=== PATIENT | female | born 1990 | race Caucasian/White ===

== ENCOUNTER 2016-09-09 17:26 | Observation (INO) | payer BC, MEDICAID, OTHER ==
[~2016-09-09] VITALS: Ht 154.9 cm; Wt 70.8 kg
[2016-09-09] MEDS ORDERED: D5LR 1,000 ML IV SCH (17:50)
[2016-09-09] MEDS ORDERED: NALBUPHINE HCL 10 MG/ML AMP IVP PRN (18:00)
[2016-09-09] MEDS ORDERED: cefTRIAXone 1 GM IVPB PREMIX 50 ML IV ONE (18:00)
[2016-09-09 18:36] LABS: BASOPHILS % (AUTO) 0.3 % (0.0-2.0); EOSINOPHILS % (AUTO) 0.1 % (0.0-4.0); HEMATOCRIT 33.1 % (36-48); HEMOGLOBIN 11.2 g/dL (12.0-16.0); LYMPHOCYTES # (AUTO) 0.8 K/uL (1.0-5.5); LYMPHOCYTES % (AUTO) 9.2 % (20.5-51.5); MEAN CORPUSCULAR HEMOGLOBIN 30 pg (27-31); MEAN CORPUSCULAR HGB CONC 34 % (32-36); MEAN CORPUSCULAR VOLUME 90 fL (79.0-98.0); MONOCYTES # (AUTO) 0.4 K/uL (0.0-1.0); MONOCYTES % (AUTO) 5.1 % (1.7-9.3); NEUTROPHILS # (AUTO) 7.4 K/uL (1.8-7.7); NEUTROPHILS % (AUTO) 85.3 % (40.0-70.0); PLATELET COUNT (AUTO) 122 K/uL (130-430); RED BLOOD CELL COUNT(AUTO) 3.69 MIL/uL (4.2-6.2); RED CELL DISTRIBUTION WIDTH 12.9 % (9.0-15.0); WHITE BLOOD COUNT (AUTO) 8.6 K/uL (4.8-10.8)
[2016-09-09 18:46] VITALS: BP_SYST 107
[2016-09-09 18:46] LABS: CALCIUM 8.3 mg/dL (8.4-11.0); CREATININE 0.58 mg/dL (0.55-1.30)
[2016-09-09 18:51] LABS: ALBUMIN 2.9 g/dL (3.4-4.8); TOTAL BILIRUBIN 0.4 mg/dL (0.0-1.0); TOTAL PROTEIN, SERUM 6.7 g/dL (6.4-8.3)
[2016-09-09] MEDS ORDERED: ACETAMINOPHEN 325 MG TABLET PO PRN (19:00)
[2016-09-09 19:39] LABS: BILIRUBIN,URINE NEGATIVE (NEGATIVE); CLARITY/URINE SL HAZY (CLEAR); COLOR,URINE YELLOW (YELLOW); GLUCOSE,URINE NEGATIVE (NEGATIVE); KETONES,URINE 2+ (NEGATIVE); LEUKOCYTE ESTERASE ,URINE 3+ (NEGATIVE); NITRITE, URINE NEGATIVE (NEGATIVE); PROTEIN URINE NEGATIVE (NEGATIVE); UROBILINOGEN,URINE 0.2 (0.2-1.0)
[2016-09-09 20:05] LABS: BARBITURATE, URINE NEGATIVE (NEG <=200); BENZODIAZEPINE, URINE NEGATIVE (NEG <=150); CANNABINOID, URINE NEGATIVE (NEG <=50); COCAINE, URINE NEGATIVE (NEG <=150); METHAMPHETAMINES SCREEN,URINE NEGATIVE (NEG <=500); OPIATE, URINE NEGATIVE (NEG <=100); PHENCYCLIDINE SCREEN,URINE NEGATIVE (NEG <=25); UR TRICYCLIC ANTIDEPRESSANTS NEGATIVE (NEG <=300); URINE AMPHETAMINE NEGATIVE (NEG <=500); URINE METHADONE NEGATIVE (NEG <=200); URINE OXYCODONE SCREEN NEGATIVE (NEG <=100); URINE PROPOXYPHENE SCREEN NEGATIVE (NEG <=300)
[2016-09-09 20:12] LABS: BLOOD, URINE TRACE (NEGATIVE)
[2016-09-09 20:51] LABS: BACTERIA,URINE FEW /HPF (None Seen); MUCUS,URINE None Seen /LPF (None Seen); RBC,URINE 0-3 /HPF (0-3)
[2016-09-10] MEDS ORDERED: LEVOTHYROXINE SODIUM 0.1 MG TABLET PO SCH (07:00)
== END 2016-09-10 09:46 | disposition home or self-care (01) ==
LOC: SPU 17:26
PROVIDERS: ADMIT Obstetrics & Gynecology; ATTEND Obstetrics & Gynecology
DX: O23.02 Infections of kidney in pregnancy, second trimester (principal); Z3A.22 22 weeks gestation of pregnancy
CPT/HCPCS: 36415; 80053; 80307; 81000; 85025; 87081; 87086; 96365; 96375; G0378 ×2; J0696; J2300; J7120 ×2

== ENCOUNTER 2016-11-11 19:39 | Observation (INO) | payer BC, MEDICAID, OTHER ==
[~2016-11-11] VITALS: Ht 154.9 cm; Wt 75.7 kg
== END 2016-11-11 21:03 | disposition home or self-care (01) ==
LOC: SPU 19:39
PROVIDERS: ADMIT Obstetrics & Gynecology; ATTEND Obstetrics & Gynecology
DX: O26.893 Other specified pregnancy related conditions, third trimester (principal); R10.9 Unspecified abdominal pain; M54.5 Low back pain; Z3A.32 32 weeks gestation of pregnancy
CPT/HCPCS: 81002; G0378

== ENCOUNTER 2019-01-25 11:54 | Inpatient (IN) | payer BC, MEDICAID, OTHER ==
[~2019-01-25] VITALS: Ht 154.9 cm; Wt 71.2 kg
[2019-01-25 12:00] VITALS: BP_SYST 121
--- NOTE | 2019-01-25 12:00 | NUR ---
Patient triaged and placed in waiting room. VSS and patient appears in no acute distress at this time. Accompanied by MOTHER, awaiting available bed, and MD notified of need for MSE.
--- NOTE | 2019-01-25 12:17 | NUR ---
BROUGHT BACK TO BED #8 VIA WHEELCHAIR, REPORT GIVEN TO ALFRED
--- NOTE | 2019-01-25 12:20 | NUR ---
Pt AAOx4 presents to ED via wheelchair c/o 8/10 L flank pain radiating to L lower abd since last night with diarrhea x 1 week. Pain exacerbated upon sitting in high fowlers position. No other injuries/complaints per pt/noted. Skin pink dry and warm, breathing even and unlabored. Will continue to monitor.
--- NOTE | 2019-01-25 12:30 | NUR ---
DANNY Starr at bedside examining patient.
[2019-01-25 12:56] LABS: BILIRUBIN,URINE NEGATIVE (NEGATIVE); BLOOD, URINE NEGATIVE (NEGATIVE); CLARITY/URINE CLEAR (CLEAR); COLOR,URINE YELLOW (YELLOW); GLUCOSE,URINE NEGATIVE (NEGATIVE); KETONES,URINE NEGATIVE (NEGATIVE); LEUKOCYTE ESTERASE ,URINE NEGATIVE (NEGATIVE); NITRITE, URINE NEGATIVE (NEGATIVE); PH,URINE 5.5 (5.0-8.0); PROTEIN URINE NEGATIVE (NEGATIVE); UROBILINOGEN,URINE 0.2 (0.2-1.0)
[2019-01-25] MEDS ORDERED: ONDANSETRON HCL 4 MG/2 ML VIAL IVP ONE (13:00)
[2019-01-25] MEDS ORDERED: MORPHINE 4 MG/ML INJ. SYRINGE IVP ONE ×2 (13:00→13:45)
[2019-01-25 13:07] LABS: BASOPHILS # (AUTO) 0.1 K/uL (0.0-0.2); BASOPHILS % (AUTO) 1.2 % (0.0-2.0); EOSINOPHILS # (AUTO) 0.1 K/uL (0.0-0.4); EOSINOPHILS % (AUTO) 1.3 % (0.0-4.0); HEMATOCRIT 40.6 % (36-48); HEMOGLOBIN 13.7 g/dL (12.0-16.0); LYMPHOCYTES # (AUTO) 2.9 K/uL (1.0-5.5); LYMPHOCYTES % (AUTO) 48.7 % (20.5-51.5); MEAN CORPUSCULAR HEMOGLOBIN 29 pg (27-31); MEAN CORPUSCULAR HGB CONC 34 % (32-36); MEAN CORPUSCULAR VOLUME 87 fL (79.0-98.0); MONOCYTES # (AUTO) 0.3 K/uL (0.0-1.0); MONOCYTES % (AUTO) 5.3 % (1.7-9.3); NEUTROPHILS # (AUTO) 2.5 K/uL (1.8-7.7); NEUTROPHILS % (AUTO) 43.5 % (40.0-70.0); PLATELET COUNT (AUTO) 170 K/uL (130-430); RED BLOOD CELL COUNT(AUTO) 4.68 MIL/uL (4.2-6.2); RED CELL DISTRIBUTION WIDTH 12.6 % (9.0-15.0); WHITE BLOOD COUNT (AUTO) 5.9 K/uL (4.8-10.8)
[2019-01-25 13:20] LABS: CALCIUM 9.2 mg/dL (8.4-11.0); CREATININE 0.58 mg/dL (0.55-1.30); POTASSIUM 4.2 mmol/L (3.5-5.1)
[2019-01-25 13:27] LABS: ALBUMIN 3.8 g/dL (3.4-4.8); TOTAL BILIRUBIN 0.5 mg/dL (0.0-1.0)
--- NOTE | 2019-01-25 13:36 | NUR ---
Medication administered. Pt tolerated well. No adverse reactions noted. Pt reports relief of pain and reports she is now able to sit up straight. Pt requests antacids. Dr. Starr notified.
[2019-01-25] MEDS ORDERED: PANTOPRAZOLE SODIUM 40 MG/VIAL (PROTONIX) IVP ONE (13:45)
--- NOTE | 2019-01-25 14:08 | NUR ---
Ultrasound at bedside
[2019-01-25] MEDS ORDERED: NACL 0.9% 1,000 ML IV ONE (14:30)
--- NOTE | 2019-01-25 14:30 | NUR ---
Pt ambulated to bathroom with steady gait. BP 99/67. Per Dr. Starr, 1 L IV NS bolus to be administered to increase BP before administering Morphine 4mg IVP.
[2019-01-25] MEDS ORDERED: D5NS 1,000 ML IV ONE (15:00)
[2019-01-25] MEDS ORDERED: LEVO125T PO (15:09)
--- NOTE | 2019-01-25 15:10 | NUR ---
Medication reconciliation completed with information provided by pt. Any prior medication reconciliation on file was reviewed and corrected.
--- NOTE | 2019-01-25 15:28 | NUR ---
Patient will be admitted to [facility]. Admitted to Med Surg unit. Will go to room 124 A. Summary report printed. Report will be given at bedside.
--- NOTE | 2019-01-25 15:52 | NUR ---
Admitting Note patient brought to room 109A via wheelchair, patient ambulated to bed, steady gait noted, respirations even and unlabored on room air, no acute distress noted, patient reports pain is controlled, patients mother at bedside, educated patient on use of call light and asked to call for assistance, patient verbalized understanding, call light in reach, educated patient on use of bed alarm for patient safety, patient refusing bed alarm, bed in low and locked position.
[2019-01-25 15:55] VITALS: BP_SYST 118
--- NOTE | 2019-01-25 17:45 | NUR ---
Spoke with Physician Spoke with Dr. Tan, informed him of patient complaint of pain to left abdomen, new medication orders received, verified with read back.
--- NOTE | 2019-01-25 17:50 | NUR ---
RN Rounds patient sitting up in bed eating dinner, tolerating well, patient reports nausea is controlled at this time, patients family at bedside.
[2019-01-25] MEDS: MORPHINE 2 MG/ML INJ. SYRINGE IVP PRN (18:20)
[2019-01-25 19:00] VITALS: BP_SYST 118
--- NOTE | 2019-01-25 19:15 | NUR ---
Closing Note bedside SBAR report given to receiving RN, patient resting in bed, no acute distress noted, patient reports pain is controlled at this time, respirations even and unlabored, patients family at bedside, paged Dr. David regarding patients home medication snythroid, per patient she did not take it today, awaiting call back, endorsed to retail shift leader RN regarding patients home medication, educated patient on use of call light and asked to call for assistance, patient verbalized understanding, call light in reach, educated patient on use of bed alarm for patient safety, patient refusing bed alarm, bed in low and locked position, care endorsed to retail shift leader RN.
[2019-01-25 20:00] VITALS: BP_SYST 118
[2019-01-25] MEDS: ACETAMINOPHEN 325 MG TABLET PO PRN (21:14)
--- NOTE | 2019-01-25 21:18 | NUR ---
DR ROMEO FREY THE PATIENT IS CONCERNED THAT SHE DID NOT TAKE HER LEVOTHYROXINE DOSE.
--- NOTE | 2019-01-25 21:24 | NUR ---
PAGED PAGED DOCTOR SHERRI WHO IS HOME ENERGY CONSULTANT
--- NOTE | 2019-01-25 21:29 | NUR ---
Dr Tan called back and informed that the patient is concerned that she has not taken her levothyroxine dose today. with orders and carried out
[2019-01-26 00:57] VITALS: BP_SYST 125
--- NOTE | 2019-01-26 04:39 | NUR ---
PAGED PAGED DOCTOR SHERRI WHO IS CONTROL CLERK AUDITING FOR ROMEO.
--- NOTE | 2019-01-26 04:39 | NUR ---
patient slept and wake up with with nausea sensation.mo meducation ordered, also has headache and claims that she has history of migrain and takes exedrine 2 tabs for it. ivf completed,Dr David paged for orders,
--- NOTE | 2019-01-26 05:00 | NUR ---
2PAGED PAGED DOCTOR SHERRI FOR 2ND TIME.
--- NOTE | 2019-01-26 05:35 | NUR ---
awaiting for Dr Tan to clall back. patient is currently asleep,ivf consumed and needs to clarify if it needs to be continued
--- NOTE | 2019-01-26 05:56 | NUR ---
Dr Tan called back and informed about the nausea and the headache, with orders and carried out, did not order exerine for migraine that the patient takke for migraine
[2019-01-26] MEDS ORDERED: ONDANSETRON HCL 4 MG/2 ML VIAL IVP PRN (06:00)
[2019-01-26] MEDS ORDERED: LEVOTHYROXINE SODIUM 0.125 MG TABLET PO SCH (07:00)
[2019-01-26] MEDS: ACETAMINOPHEN 325 MG TABLET PO PRN ×2 (07:48→11:56)
[2019-01-26 07:50] VITALS: BP_SYST 128
[2019-01-26] MEDS: MORPHINE 2 MG/ML INJ. SYRINGE IVP PRN ×2 (07:55→11:56)
--- NOTE | 2019-01-26 08:01 | NUR ---
am rounds: Oriented x4. Denies abdominal/flank pain but complaints of migraine headache with nausea, Medicated with morphine and zofran, Ice packs offered to the patient.
[2019-01-26 09:59] LABS: BASOPHILS # (AUTO) 0.1 K/uL (0.0-0.2); EOSINOPHILS # (AUTO) 0.1 K/uL (0.0-0.4); EOSINOPHILS % (AUTO) 2.1 % (0.0-4.0); HEMOGLOBIN 13.3 g/dL (12.0-16.0); LYMPHOCYTES # (AUTO) 2.4 K/uL (1.0-5.5); LYMPHOCYTES % (AUTO) 44.1 % (20.5-51.5); MEAN CORPUSCULAR HEMOGLOBIN 30 pg (27-31); MEAN CORPUSCULAR HGB CONC 34 % (32-36); MEAN CORPUSCULAR VOLUME 87 fL (79.0-98.0); MONOCYTES # (AUTO) 0.2 K/uL (0.0-1.0); MONOCYTES % (AUTO) 4.5 % (1.7-9.3); NEUTROPHILS # (AUTO) 2.6 K/uL (1.8-7.7); NEUTROPHILS % (AUTO) 48.3 % (40.0-70.0); PLATELET COUNT (AUTO) 160 K/uL (130-430); RED BLOOD CELL COUNT(AUTO) 4.47 MIL/uL (4.2-6.2); RED CELL DISTRIBUTION WIDTH 12.8 % (9.0-15.0); WHITE BLOOD COUNT (AUTO) 5.5 K/uL (4.8-10.8)
[2019-01-26 10:13] LABS: CALCIUM 8.6 mg/dL (8.4-11.0); CREATININE 0.81 mg/dL (0.55-1.30); POTASSIUM 3.5 mmol/L (3.5-5.1)
[2019-01-26 10:27] LABS: ALBUMIN 3.4 g/dL (3.4-4.8); THYROID STIMULATING HORMONE 0.26 uIu/mL (0.36-3.74); TOTAL BILIRUBIN 0.5 mg/dL (0.0-1.0)
[2019-01-26 11:05] VITALS: BP_SYST 95
[2019-01-26 12:00] VITALS: BP_SYST 102
--- NOTE | 2019-01-26 12:00 | NUR ---
Headache: Medicated for migraine headache, denies nausea.
--- NOTE | 2019-01-26 15:16 | NUR ---
D/C Patient Patient given medication reconciliation form and D/C instructions. Exit Care provided. Patient verbalized understanding. MD discussed with patient the results and treatment provided. Ambulatory with steady gait for discharge to home. Patient in stable condition, ID band removed. IV catheter removed, intact and dressing applied, no active bleeding. Patient educated on pain management and follow up with PCP. All belongings sent with patient.
== END 2019-01-26 14:58 | disposition home or self-care (01) | DRG 282 ==
LOC: SED 11:54 → SMU 14:56
PROVIDERS: ADMIT Internal Medicine Hospice and Palliative Medicine; ATTEND Internal Medicine Hospice and Palliative Medicine
DX: K85.90 Acute pancreatitis without necrosis or infection, unspecified (principal); E03.9 Hypothyroidism, unspecified; K59.00 Constipation, unspecified; F12.90 Cannabis use, unspecified, uncomplicated; Z79.899 Other long term (current) drug therapy; Z91.040 Latex allergy status
CPT/HCPCS: 36415; 76700-TC; 80053; 81003; 81025; 83690-TC; 84443-TC; 85025; 96361; 96374; 96375; 96376; 99285; C9113; J2270; J2405; J7030; J7042

== ENCOUNTER 2019-12-28 12:58 | Emergency (ER) | payer MEDICAID ==
[~2019-12-28] VITALS: Ht 160 cm; Wt 61.2 kg
[~2019-12-28 12:58] MED LIST: LEVO125T PO
[2019-12-28 13:19] VITALS: BP_SYST 120
[2019-12-28] MEDS ORDERED: ACETAMINOPHEN 500 MG TABLET PO ONE (13:45)
[2019-12-28 14:08] LABS: CALCIUM 9.1 mg/dL (8.4-11.0); CREATININE 0.6 mg/dL (0.55-1.30); POTASSIUM 3.7 mmol/L (3.5-5.1)
[2019-12-28 14:10] LABS: BASOPHILS % (AUTO) 0.6 % (0.0-2.0); EOSINOPHILS % (AUTO) 0.4 % (0.0-4.0); HEMATOCRIT 39.7 % (36-48); HEMOGLOBIN 13.5 g/dL (12.0-16.0); LYMPHOCYTES # (AUTO) 2.2 K/uL (1.0-5.5); LYMPHOCYTES % (AUTO) 28.4 % (20.5-51.5); MEAN CORPUSCULAR HEMOGLOBIN 30 pg (27-31); MEAN CORPUSCULAR HGB CONC 34 % (32-36); MEAN CORPUSCULAR VOLUME 88 fL (79.0-98.0); MONOCYTES # (AUTO) 0.4 K/uL (0.0-1.0); MONOCYTES % (AUTO) 5.5 % (1.7-9.3); NEUTROPHILS # (AUTO) 4.9 K/uL (1.8-7.7); NEUTROPHILS % (AUTO) 65.1 % (40.0-70.0); PLATELET COUNT (AUTO) 171 K/uL (130-430); RED BLOOD CELL COUNT(AUTO) 4.52 MIL/uL (4.2-6.2); RED CELL DISTRIBUTION WIDTH 13.6 % (9.0-15.0); WHITE BLOOD COUNT (AUTO) 7.6 K/uL (4.8-10.8)
[2019-12-28 14:14] LABS: ALBUMIN 3.6 g/dL (3.4-4.8); TOTAL BILIRUBIN 0.3 mg/dL (0.0-1.0)
[2019-12-28 15:01] VITALS: BP_SYST 120
== END 2019-12-28 15:01 | disposition home or self-care (01) ==
LOC: SED 12:58
DX: O26.891 Other specified pregnancy related conditions, first trimester (principal); R10.12 Left upper quadrant pain; Z3A.01 Less than 8 weeks gestation of pregnancy; Z91.040 Latex allergy status; Z79.899 Other long term (current) drug therapy
CPT/HCPCS: 36415; 80053; 81002; 83690-TC; 85025; 99283

== ENCOUNTER 2020-08-11 20:12 | Emergency (ER) | payer OTHER, MEDICAID ==
[~2020-08-11] VITALS: Ht 154.9 cm; Wt 66.7 kg
[2020-08-11 20:19] VITALS: BP_SYST 106
[2020-08-11] MEDS ORDERED: ACETAMINOPHEN 500 MG TABLET PO ONE (21:00)
[2020-08-11 21:17] LABS: HEMATOCRIT 39.5 % (36-48); MEAN CORPUSCULAR HEMOGLOBIN 29 pg (27-31); MEAN CORPUSCULAR VOLUME 88 fL (79.0-98.0); RED BLOOD CELL COUNT(AUTO) 4.52 MIL/uL (4.2-6.2); WHITE BLOOD COUNT (AUTO) 6.1 K/uL (4.8-10.8)
[2020-08-11 21:18] LABS: MEAN CORPUSCULAR HGB CONC 33 % (32-36); PLATELET COUNT (AUTO) 140 K/uL (130-430); RED CELL DISTRIBUTION WIDTH 14.4 % (9.0-15.0)
[2020-08-11 21:32] LABS: ANION GAP 11 (5-15); CALCIUM 8.5 mg/dL (8.4-11.0); CHLORIDE 103 mmol/L (98-107); CREATININE 0.71 mg/dL (0.55-1.30); GLUCOSE 89 mg/dL (70-99); SODIUM SERUM 138 mmol/L (136-145); UREA NITROGEN, BLOOD 22 mg/dL (8-21)
[2020-08-11 21:38] LABS: ALANINE AMINOTRANSFERASE 78 U/L (12-78); ALBUMIN 3.7 g/dL (3.4-4.8); AMYLASE 80 U/L (0-100); ASPARTATE AMINOTRANSFERASE 34 U/L (10-37); INR 0.9 (0.8-1.2); LIPASE 118 U/L (73-393); PROTHROMBIN TIME 9.7 SECS (9.5-12.5); TOTAL BILIRUBIN 0.2 mg/dL (0.0-1.0)
[2020-08-11 21:49] LABS: GFR AFRICAN AMERICAN 124 mL/min (>90)
[2020-08-11 22:24] LABS: C-REACTIVE PROTEIN QUANT < 0.2 mg/dL (0-0.5)
[2020-08-11 22:30] VITALS: BP_SYST 106
[2020-08-11 22:37] LABS: BAND % (MANUAL) 0 % (0-6); BASOPHILS % (MANUAL) 0 % (0-2); EOSINOPHILS % (MANUAL) 3 % (0-7); LYMPHOCYTES % (MANUAL) 59 % (20-46); MONOCYTES % (MANUAL) 3 % (0-11)
[2020-08-11 22:56] LABS: BILIRUBIN,URINE NEGATIVE (NEGATIVE); BLOOD, URINE 3+ (NEGATIVE); CLARITY/URINE SLIGHTLY HAZY (CLEAR); COLOR,URINE YELLOW (YELLOW); GLUCOSE,URINE NEGATIVE (NEGATIVE); KETONES,URINE NEGATIVE (NEGATIVE); LEUKOCYTE ESTERASE ,URINE 3+ (NEGATIVE); NITRITE, URINE NEGATIVE (NEGATIVE); PROTEIN URINE NEGATIVE (NEGATIVE); UROBILINOGEN,URINE 0.2 (0.2-1.0)
[2020-08-11 23:14] LABS: BACTERIA,URINE MODERATE /HPF (None Seen)
== END 2020-08-11 22:30 | disposition home or self-care (01) ==
LOC: SED 20:12
DX: R10.2 Pelvic and perineal pain (principal); Z91.040 Latex allergy status
CPT/HCPCS: 36415; 76376; 80053; 81000-TC; 81025; 82150-TC; 83605; 83690-TC; 84703; 85007; 85027; 85610-TC; 85730-TC; 86140; 87086; 87186-TC; 99284